=== PATIENT | male | born 2000 | race Hispanic/Latino ===

== ENCOUNTER 2022-08-19 07:22 | Emergency (ER) | payer SELFPAY ==
[2022-08-19 07:24] VITALS: BP 124/78; PULSE 78; RESP 16; TEMP 36.6; O2SAT 99; BMI 22.8
--- NOTE | 2022-08-19 07:34 | EX.ED.DYSGE1 ---
HPI History of Present Illness Chief Complaint: Abd Pain Informant: patient and family Onset/Context/Timing Onset: Month(s) Narrative Narrative: Patient presents secondary to epigastric abdominal pain. He states every morning for the last 2 months he has had epigastric abdominal pain with nausea and vomiting. Today the pain became worse and he came to the ER for treatment. Shake Backboard Notcher was used during the visit to obtain history. He reports onset of epigastric pain and nausea around 3 or 4 AM with vomiting of white phlegm. He believes he has early gastritis. He does smoke but denies any alcohol or drug use. He denies any other medical history or surgical history. PFSH PFS Medical History no medical history no medical history Home Medications omeprazole 20 mg capsule,delayed release 20 mg PO DAILY 12 weeks #84 caps 08/19/22 [Rx Last Taken Unknown] ondansetron 4 mg disintegrating tablet 4 mg PO Q8H PRN PRN Nausea #10 tabs 08/19/22 [Rx Last Taken Unknown] Allergy/AdvReac Type Severity Reaction Status Date / Time No Known Allergies Allergy Verified 08/19/22 07:23 Family History no significant family his Surgical History no surgical history no surgical history Social History Smoking Status: Never smoker ROS ROS ED Constitutional Constitutional ED: Denies chills or fever(s) Eyes Eyes: Denies discharge from eye(s) ENT ENT ED: Denies discharge from eye(s) or rhinorrhea Cardiovascular Cardiovascular: Denies chest pain or palpitations Respiratory/Chest Respiratory/Chest: Denies cough or dyspnea Gastrointestinal Gastrointestinal: Reports abdominal pain, nausea and vomiting; Denies diarrhea Genitourinary Genitourinary ED: Denies dysuria Musculoskeletal Musculoskeletal: Denies back pain or extremity pain Integumentary Denies Abrasions or rash Neurologic Neurologic: Denies headache(s) or weakness Allergic/Immunologic Allergic/Immunologic ED: Denies lip swelling or urticaria EXAM Physical Exam Const Vital Signs: 08/19/22 07:24 Temperature 97.8 F Temperature Source Temporal Pulse Rate 78 Respiratory Rate 16 Blood Pressure 124/78 H Blood Pressure Mean 93 Pulse Ox 99 Oxygen Delivery Method Room Air Positive well nourished and well developed General Appearance ED: well developed HEENT Reports normocephalic and head/scalp atraumatic Eyes PERRL and EOMs intact bilaterally Neck supple Chest Wall inspection of chest normal and palpation of chest normal Resp normal respiratory effort and clear to auscultation bilaterally Cardio regular rate and regular rhythm GI GI Narrative: Focal tenderness in the epigastrium. No guarding or rebound. Palpation: soft Back/Spine no CVA tenderness Extremity normal to inspection Neuro oriented x3 and no sensory deficits noted Sensorium / Orientation: alert Motor Exam: strength 5/5 throughout Psych mental status grossly normal Skin no rashes or lesions noted MDM MDM MDM Narrative Medical decision making narrative: Differential diagnosis includes gastritis, pancreatitis, cholecystitis, gastroenteritis. Lab work was ordered to evaluate for leukocytosis or anemia. Chemistry studies obtained to evaluate electrolyte status. LFTs and lipase obtained to evaluate for hepatic/gallbladder disease as well as pancreatitis. Patient was given a GI cocktail along with Zofran and Protonix. Lab Data Attestation: I reviewed the patient's lab results. Labs: Laboratory Results - last 24 hr 08/19/22 08/19/22 07:55 07:55 WBC 4.8 RBC 5.07 Hgb 15.3 Hct 44.5 MCV 87.8 MCH 30.2 MCHC 34.4 RDW Std Deviation 39.9 RDW Coeff of [place] 12.4 Plt Count 275 MPV 9.7 Immature Gran % (Auto) 0.200 Neut % (Auto) 58.7 Lymph % (Auto) 31.0 Island % (Auto) 8.3 Eos % (Auto) 0.8 Baso % (Auto) 1.0 Absolute Neuts (auto) 2.8 Absolute Lymphs (auto) 1.49 Nucleated RBC % 0 Sodium 141 Potassium 3.9 Chloride 107 Carbon Dioxide 28.0 Anion Gap 6 BUN 10 Creatinine 0.78 Estim Creat Clear Calc 130.32 Est GFR (MDRD) Af Amer 160 Est GFR (MDRD) Non-Af 133 BUN/Creatinine Ratio 12.8 Glucose 100 Calcium 9.3 Total Bilirubin 2.80 H Direct Bilirubin 0.33 H AST 17 ALT 31 Alkaline Phosphatase 79 Total Protein 8.5 H Albumin 4.6 Globulin 3.9 Lipase 53 L Treatment and Re-Evaluation Narrative: On repeat evaluation patient states he does feel improved. He denies any abdominal pain at this time. CBC is unremarkable. Chemistry studies normal. LFTs significant only for a total bili of 2.8, but other values all normal. Lipase is normal at 53. Patient will be given a prescription for Prilosec and Zofran. He is referred to local PCP to establish care. Return instructions given. Discharge Plan Triage Chief Complaint: Abd Pain ED Provider: Jillian Dixon Dx/Rx/DC Orders Clinical Impression: Gastritis Instructions: ED Gastritis (Adult) Prescriptions: New ondansetron 4 mg tablet,disintegrating 4 mg PO Q8H PRN PRN (Reason: Nausea) Qty: 10 0RF omeprazole 20 mg capsule,delayed release(DR/EC) 20 mg PO DAILY 84 Days Qty: 84 0RF Referrals: Comfort Solano DO [Med Staff - Labor Contract Analyst] - As Needed Print Language: [place] Disposition Disposition: Home, Self Care
[2022-08-19 08:02] LABS: Absolute Lymphocyte Count 1.49 X10^3/uL (0.83-4.51); Absolute Neutrophil Count 2.8 X10^3/uL (2.0-7.7); Basophil# 0.05 X10^3/uL; Eosinophil# 0.04 X10^3/uL; Eosinophils% 0.8 % (0-5); Hematocrit 44.5 % (40-54); Hemoglobin 15.3 g/dL (13.0-16.5); Lymphocyte # 1.49 X10^3/ul (0.83-4.51); Mean Corp Hgb Conc 34.4 g/dL (32-36); Mean Corpuscular Hgb 30.2 pg (27.0-32.0); Mean Corpuscular Volume 87.8 fL (80-94); Mean Platelet Vol. 9.7 fl (6.2-12.0); Monocyte% 8.3 % (0-10); NRBC Flagged by Analyzer 0 % (0-5); Neutrophil # 2.82 X10^3/uL (2.7-7.7); Neutrophil % 58.7 % (47-70); Platelet Count 275 K/mm3 (150-450); RBC Distribution Width CV 12.4 % (11.6-14.6); RBC Distribution Width SD 39.9 fl (35.1-43.9); Red Blood Count 5.07 M/mm3 (4.6-6.2); White Blood Count 4.8 K/mm3 (4.4-11.0)
[2022-08-19] MEDS: Ondansetron 4 MG/2 ML Vial IV (08:04)
[2022-08-19] MEDS: 0.9% Normal Saline 1,000 ML 150 ML IV (08:05)
[2022-08-19] MEDS: Mag Hydrox/Al Hydrox/Simeth 30 ML UDC PO (08:05)
[2022-08-19 08:16] LABS: AST(SGOT) 17 U/L (15-37); Alanine Aminotransfer ALT/SGPT 31 U/L (16-61); Albumin, Serum 4.6 g/dL (3.2-5.0); Alkaline Phosphatase 79 U/L (45-117); Anion Gap 6 (5-15); BUN 10 mg/dL (7-18); BUN/Creat Ratio 12.8 RATIO (10-20); Bilirubin, Direct 0.33 mg/dL (0.00-0.30); Calcium,Total 9.3 mg/dL (8.5-10.1); Chloride 107 mmol/L (98-107); Creatinine, Serum 0.78 mg/dL (0.70-1.30); EST Glomerular Filtration Rate 133 mL/min (>60); Est Glom Filt Rate - Afr Amer 160 mL/min (>60); Estimated Creatinine Clearance 130.32 ml/min; Globulin 3.9 g/dL (2.2-4.2); Glucose 100 mg/dL (74-106); Lipase 53 U/L (73-393); Potassium 3.9 mmol/L (3.5-5.1); Protein, Total 8.5 g/dL (6.4-8.2); Sodium Level 141 mmol/L (136-145)
== END 2022-08-19 09:51 | disposition home or self-care (01) ==
LOC: ED 09:30
PROVIDERS: Emergency Provider Emergency Medicine; Visit Provider Emergency Medicine
DX: K29.70 Gastritis, unspecified, without bleeding (principal); F17.200 Nicotine dependence, unspecified, uncomplicated; R10.13 Epigastric pain
CPT/HCPCS: 80048; 80076; 83690; 85025; 96361; 96365; 96375; 99284; J7030; A4216; J2405